=== PATIENT | female | born 1985 | race Asian ===

== ENCOUNTER 2019-04-19 12:51 | Outpatient (CLI) | payer BC ==
--- NOTE | 2019-04-19 14:27 | CT ---
CT ABDOMEN AND PELVIS WITH AND WITHOUT IV CONTRAST: Date: 04/19/19 HISTORY: Hematuria. FINDINGS: The lung bases are clear. No calcified gallstones are seen. The liver, spleen, pancreas, and adrenal glands are normal. No calculi seen in the kidneys, ureters, or the urinary bladder. No hydroureteronephrosis noted on ei ther side. Postcontrast images demonstrate no evidence of renal mass. There is normal contrast excret ion into the ureters and the urinary bladder. No free air, free fluid, or lymphadenopathy seen in the abdomen or pelvis. The small bowel loops are not abnormally dilated. A normal appearing appendix is present. Uterus and ovaries are normal. No ost eolytic or osteoblastic lesions are seen. Aorta is of normal caliber. IMPRESSION: Normal exam. POS: [id number]
== END 2019-04-19 12:52 | disposition home or self-care (01) ==
LOC: SCSCT 12:51
PROVIDERS: ATTEND Urology
DX: R31.29 Other microscopic hematuria (principal); R35.0 Frequency of micturition
CPT/HCPCS: 74178